=== PATIENT | female | born 1990 | race Caucasian/White ===

== ENCOUNTER 2020-06-17 06:00 | Inpatient (IN) ==
[2020-06-17] MEDS ORDERED: Naloxone 0.4 MG/ML INJ IVP PRN (06:10)
[2020-06-17] MEDS ORDERED: Famotidine 20 MG/2 ML VIAL IVP PRN (06:10)
[2020-06-17] MEDS ORDERED: Ondansetron 4 MG/2 ML VIAL IVP PRN (06:10)
[2020-06-17] MEDS ORDERED: Lidocaine 1% 20 ML MDV INFILT PRN (06:10)
[2020-06-17] MEDS ORDERED: Metoclopramide 10 MG/2 ML VIAL IVP PRN (06:10)
[2020-06-17] MEDS ORDERED: Azithromycin 500 MG in 0.9 % Sodium Chloride 250 ML IVPB ONE (06:10)
[2020-06-17] MEDS ORDERED: *HR* Nalbuphine 10 MG/ML AMPUL IV PRN (06:10)
[2020-06-17] MEDS ORDERED: miSOPROStoL 25 MCG TABLET VG PRN (06:12)
[2020-06-17] MEDS ORDERED: EPHEDrine 50 MG/ML VIAL ONE (06:44)
[2020-06-17 06:53] LABS: Basophils % 0.3 %; Eosinophils # 0.1 K/mcL (0.0-0.6); Eosinophils % 0.8 %; Hematocrit 38.5 % (35.3-44.9); Hemoglobin 12.5 g/dL (11.5-15.4); Immature Granulocytes % 0.7 % (0-4); Lymphocytes # 2.7 K/mcL (0.6-4.6); Lymphocytes % 23.1 %; Mean Corpuscular HGB Conc 32.5 g/dL (31.6-35.5); Mean Corpuscular Hemoglobin 29.3 pg (28.0-33.3); Mean Corpuscular Volume 90.4 fL (83.0-100.0); Monocytes # 0.8 K/mcL (0.0-1.3); Monocytes % 6.9 %; Neutrophils # 8.1 K/mcL (1.6-8.9); Platelet Count 288 K/mcL (140-400); Red Blood Count 4.26 M/mcL (3.82-4.97); Red Cell Distribution Width 13.6 % (11.5-14.5); Segmented Neutrophils % 68.2 %; White Blood Count 11.8 K/mcL (4.3-11.1)
[2020-06-17 06:56] LABS: Amphetamine Screen,Urine Negative ng/mL (Cutoff=1000); Barbiturate Screen,Urine Negative ng/mL (Cutoff=200)
[2020-06-17 06:57] LABS: Benzodiazepines Screen,Urine Negative ng/mL (Cutoff=300); Cannabinoid Screen,Urine Negative ng/mL (Cutoff = 50); Cocaine Screen,Urine Negative ng/mL (Cutoff= 300); Opiate Screen,Urine Negative ng/mL (Cutoff=300); Phencyclidine Screen,Urine Negative ng/mL (Cutoff=25)
[2020-06-17 07:44] LABS: Adenovirus DETECTED (Not Detect); Bordetella Pertussis Not Detected (Not Detect); Chlamydophila pneumoniae Not Detected (Not Detect); Coronavirus 229E Not Detected (Not Detect); Coronavirus HKU1 Not Detected (Not Detect); Coronavirus NL63 Not Detected (Not Detect); Coronavirus OC43 Not Detected (Not Detect); Human Metapneumovirus Not Detected (Not Detect); Human Rhinovirus/Enterovirus Not Detected (Not Detect); Influenza A Subtype 2009 H1 Not Detected (Not Detect); Influenza B Not Detected (Not Detect); Mycoplasma pneumoniae Not Detected (Not Detect); Parainfluenza Virus 1 Not Detected (Not Detect); Parainfluenza Virus 2 Not Detected (Not Detect); Parainfluenza Virus 3 Not Detected (Not Detect); Parainfluenza Virus 4 Not Detected (Not Detect); Respiratory Syncytial Virus Not Detected (Not Detect); SARS-CoV-2 Not Detected (Not Detect)
[2020-06-17] MEDS ORDERED: Epidural Premix (fent/bupiv) 110 ML EP ONE (10:19)
[2020-06-17] MEDS: Ringers Solution, Lactated 1,000 ML IVC SCH ×2 (10:39→15:35)
[2020-06-17] MEDS ORDERED: Epidural Premix (fent/bupiv) 110 ML EP SCH (10:45)
[2020-06-17] MEDS ORDERED: EPHEDrine 50 MG/ML VIAL IVP PRN (10:45)
[2020-06-17] MEDS ORDERED: Oxytocin 20 units/ LR 1000 mL 20 UNIT/1,000 ML BAG IVC SCH ×2 (11:00→22:17)
[2020-06-17] MEDS ORDERED: Acetaminophen 325 MG TABLET PO ONE (15:00)
[2020-06-17] MEDS ORDERED: *HR* HYDROcodone/Acet 5/325 mg TABLET PO PRN (22:17)
[2020-06-17] MEDS ORDERED: Ibuprofen 600 MG TABLET PO PRN (22:17)
[2020-06-17] MEDS ORDERED: Lanolin 7 G OINT...G. TP PRN (22:17)
[2020-06-17] MEDS ORDERED: Benzocaine/Menthol 56 GM AEROSOL SPRAY TP PRN (22:17)
[2020-06-17] MEDS: Acetaminophen 325 MG TABLET PO PRN (23:42)
[2020-06-18 05:09] LABS: Basophils % 0.1 %; Eosinophils % 0.1 %; Hematocrit 35.9 % (35.3-44.9); Hemoglobin 11.8 g/dL (11.5-15.4); Immature Granulocytes % 0.5 % (0-4); Lymphocytes % 9.8 %; Mean Corpuscular HGB Conc 32.9 g/dL (31.6-35.5); Mean Corpuscular Hemoglobin 30.5 pg (28.0-33.3); Mean Corpuscular Volume 92.8 fL (83.0-100.0); Mean Platelet Volume 10.2 fL (9.4-12.4); Monocytes # 1.5 K/mcL (0.0-1.3); Monocytes % 7.2 %; Neutrophils # 17.1 K/mcL (1.6-8.9); Platelet Count 269 K/mcL (140-400); Red Blood Count 3.87 M/mcL (3.82-4.97); Red Cell Distribution Width 13.9 % (11.5-14.5); Segmented Neutrophils % 82.3 %; White Blood Count 20.8 K/mcL (4.3-11.1)
[2020-06-18 07:45] VITALS: BP 111/71
[2020-06-18] MEDS: Acetaminophen 325 MG TABLET PO PRN (08:19)
[2020-06-18] MEDS ORDERED: Prenatal Vit/FA 1 EACH TABLET PO SCH (09:00)
== END 2020-06-18 20:25 | disposition home or self-care (01) | DRG 560 ==
LOC: 1NENULAB 06:04 → 1NENUOBS 22:17
PROVIDERS: ADMIT Obstetrics & Gynecology; ATTEND Obstetrics & Gynecology